=== PATIENT | male | born 1975 | race Caucasian/White ===

== ENCOUNTER 2017-07-05 22:27 | Emergency (ER) | payer BC ==
[~2017-07-05] VITALS: Ht 167.6 cm; Wt 108.9 kg
[2017-07-05 22:39] VITALS: BP 150/88
--- NOTE | 2017-07-05 22:45 | NUR ---
PT.AMBULATED TO ER [facility]
--- NOTE | 2017-07-05 23:00 | NUR ---
41Y/M PT. PRESENST TO ED WITH C/O CHEST PAIN X 1 WEEK. PT. STATES EPISODE OF SYNCOPE 3 HRS AGO FOR 5 SEC. HX. HTN. AAO X4, AMBULATORY WITH STEADY GAIT. RESPIRATIONS ROOM AIR EVEN AND UNLABORED. BL LUNG CLEAR. C/O CHEST PAIN 09/21, NO RADIATION. VSS, ER MADE AWARE OF PT. STATUS.
--- NOTE | 2017-07-05 23:00 | NUR ---
Patient being evaluated by DR. VALERA at bedside.
[2017-07-06 00:04] LABS: HEMATOCRIT 44.9 % (36-52); HEMOGLOBIN 15.4 g/dL (12.0-18.0); MEAN CORPUSCULAR HEMOGLOBIN 31 pg (27-31); MEAN CORPUSCULAR HGB CONC 34 g/dL (33-37); MEAN CORPUSCULAR VOLUME 91.4 fL (80-94); PLATELET COUNT (AUTO) 383 K/uL (140-450); RED BLOOD CELL COUNT(AUTO) 4.91 MIL/uL (4.20-6.10); RED CELL DISTRIBUTION WIDTH 13.7 % (11.6-13.7); WHITE BLOOD COUNT (AUTO) 12.7 K/uL (4.8-10.8)
[2017-07-06 00:27] LABS: ALBUMIN 3.7 g/dL (3.4-5.0); ANION GAP 13.9 (8-16); CARBON DIOXIDE 26.6 mmol/L (21-32); CREATININE 0.9 mg/dL (0.7-1.3); EOSINOPHILS % (MANUAL) 10 % (0-4); LYMPHOCYTES % (MANUAL) 27 % (20-46); MONOCYTES % (MANUAL) 5 % (5-12); POTASSIUM 3.5 mmol/L (3.5-5.1); TOTAL BILIRUBIN 0.2 mg/dL (0.0-1.0)
[2017-07-06 01:48] VITALS: BP 123/77
--- NOTE | 2017-07-06 01:50 | NUR ---
Patient discharged with v/s stable. Written and verbal after care instructions given and explained. Patient verbalized understanding. Ambulatory with steady gait. All questions addressed prior to discharge. Advised to follow up with PMD.
== END 2017-07-06 01:50 | disposition home or self-care (01) ==
LOC: MED 22:27
DX: R07.9 Chest pain, unspecified (principal); R55 Syncope and collapse; K21.9 Gastro-esophageal reflux disease without esophagitis; I10 Essential (primary) hypertension; Z88.0 Allergy status to penicillin; Z88.1 Allergy status to other antibiotic agents; F17.210 Nicotine dependence, cigarettes, uncomplicated; Z90.49 Acquired absence of other specified parts of digestive tract
CPT/HCPCS: 36415; 71045; 80053; 84484; 85025; 93005; 99285